=== PATIENT | male | born 1950 | race Caucasian/White ===

== ENCOUNTER → 2021-06-27 | Outpatient (CLI) | payer BC, MEDICARE ==
[~2021-06-27] MED LIST: BEBTELOVIMAB (EUA) 175 MG/2 ML VIAL IV ONE; SODIUM CHLORIDE 0.9% 500 ML 500 ML in EMPTY BAG 1 BAG IV PRN
[2021-06-27 13:15] VITALS: TEMP 98.2
[2021-06-27 14:29] VITALS: BP 149/73; PULSE 69
[2021-06-27 14:41] VITALS: RESP 18
== END ==
LOC: PROCWHC3 13:04
PROVIDERS: ATTEND Family Medicine
DX: U07.1 COVID-19 (principal); E66.9 Obesity, unspecified
CPT/HCPCS: 96374; Q0222; M0222

== ENCOUNTER 2022-01-31 16:16 | Emergency (ER) | payer MEDICARE ==
[2022-01-31 16:25] VITALS: TEMP 97.4
[2022-01-31] MEDS ORDERED: SODIUM CHLORIDE 0.9% 1,000 ML IV STA ×2 (16:35)
--- NOTE | 2022-01-31 16:43 | ED ---
General Adult HPI - General Chief complaint: Chest Pain Stated complaint: abn EKG Time Seen by Provider: 01/31/22 16:26 Source: patient Mode of arrival: ambulatory Limitations: no limitations - History of Present Illness Initial comments: This 71-year-old male presents with the complaint of some dizziness. This apparently came on this past evening. He felt lightheaded and presyncopal at times. He apparently became diaphoretic at times as well. He denies any chest pain or shortness of breath. This seems somewhat worse when he was going from lying to standing but also worse when he was sitting on the toilet. He has had several episodes of diarrhea but did not look at his stool also is unsure if there is any blood in it. She denies any abdominal pain, fevers, or chills. He states that he has had a slight cough but this is not abnormal for him. He denies any previous similar incidents. He is overall fairly healthy except for some hypercholesterolemia. He was seen at an urgent care earlier and they sent him to the ER for further evaluation. They told him that his EKG was abnormal but this is reviewed and there are no acute findings. No other complaints or modifying factors. - Related Data Allergies Allergy/AdvReac Type Severity Reaction Status Date / Time No Known Allergies Allergy Verified 01/31/22 16:25 Review of Systems ROS Statement: Those systems with pertinent positive or pertinent negative responses have been documented in the HPI. ROS Other: All systems not noted in ROS Statement are negative. Past Medical History Additional Past Medical History / Comment(s): high cholestrol History of Any Multi-Drug Resistant Organisms: None Reported Additional Past Surgical History / Comment(s): neck surgery Past Psychological History: No Psychological Hx Reported Smoking Status: Never smoker Past Alcohol Use History: Occasional Past Drug Use History: None Reported General Exam - General Exam Comments Initial Comments: GENERAL: The patient is well nourished and well hydrated. VITAL SIGNS: Heart rate, blood pressure, respiratory rate reviewed as recorded in nurse's notes. EYES: Pupils are round and reactive. Extraocular movements are intact. No conjunctival / lid redness or swelling. ENT: No external evidence of injury, swelling, or ecchymosis. Airway is patent. Throat is clear. NECK: Nontender. No swelling or evidence of injury. No subcutaneous emphysema. Trachea is midline. No thyroid mass. HEART: Regular rate and rhythm. Good peripheral pulses. LUNGS/CHEST: Breath sounds clear and equal bilaterally. No rales, rhonchi, or wheezes. No ecchymosis, subcutaneous emphysema, or tenderness. ABDOMEN: Abdomen soft without tenderness. No palpable masses or organomegaly. No peritoneal signs. No abdominal wall swelling or ecchymosis. EXTREMITIES: No extremity tenderness. Normal muscle tone and function. No thoracolumbar tenderness. NEUROLOGIC: Sensation is grossly intact. Cranial nerve exam reveals face is symmetrical, tongue is midline, speech is clear. SKIN: No abrasions or ecchymosis is noted. No induration or masses noted. PSYCHIATRIC: Alert and oriented. Appropriate behavior and judgment. Limitations: no limitations Course Vital Signs 01/31/22 01/31/22 16:19 17:18 Temperature 97.4 F L Pulse Rate 89 Respiratory 16 Rate Blood Pressure 128/82 Blood Pressure 132/71 [Sitting] Blood Pressure 117/70 [Standing] Blood Pressure 137/74 [Supine] O2 Sat by Pulse 98 Oximetry Medical Decision Making - Medical Decision Making The patient was seen and examined. All diagnostics were reviewed. EKG shows a normal sinus rhythm at a rate of 85. There is no acute ST-T wave changes identified. The FL intervals 174, QRS duration is 110, and the QTC intervals 400. An IV is established and he is hydrated. The laboratory is all essentially within normal limits except for the TSH is decreased. The orthostatics do show slight increase in heart rate with standing but overall are negative. He states that he was feeling fine when he came in and he is still feeling fine on recheck. Chest x-ray is normal. The exact cause of his symptomatology is not definitively determined. It does sound as though he was presyncopal yesterday and states that this has occurred intermittently over the past couple of years but yesterday was the worst. It is felt as though he stable for discharge but may benefit from Holter monitor on an outpatient basis. It is also felt as though he may benefit from following up with primary care for evaluation of his low TSH and possible hyperthyroidism as he may need additional testing and/or referral consultation. Patient is agreeable with this plan. Return parameters are discussed. Close follow-up recommended. - Lab Data Result diagrams: 01/31/22 16:44 01/31/22 17:50 Lab Results 01/31/22 01/31/22 01/31/22 Range/Units 16:44 16:52 16:52 WBC 8.9 (3.8-10.6) k/uL RBC 5.34 (4.30-5.90) m/uL Hgb 16.7 (13.0-17.5) gm/dL Hct 50.4 (39.0-53.0) % MCV 94.3 (80.0-100.0) fL MCH 31.2 (25.0-35.0) pg MCHC 33.1 (31.0-37.0) g/dL RDW 13.1 (11.5-15.5) % Plt Count 261 (150-450) k/uL MPV 8.2 Neutrophils % 84 % Lymphocytes % 8 % Monocytes % 5 % Eosinophils % 1 % Basophils % 0 % Neutrophils # 7.5 (1.3-7.7) k/uL Lymphocytes # 0.8 L (1.0-4.8) k/uL Monocytes # 0.4 (0-1.0) k/uL Eosinophils # 0.1 (0-0.7) k/uL Basophils # 0.0 (0-0.2) k/uL PT 10.1 (9.0-12.0) sec INR 0.9 (<1.2) APTT 22.9 (22.0-30.0) sec Sodium (137-145) mmol/L Potassium (3.5-5.1) mmol/L Chloride (98-107) mmol/L Carbon Dioxide (22-30) mmol/L Anion Gap mmol/L BUN (9-20) mg/dL Creatinine (0.66-1.25) mg/dL Est GFR (CKD-EPI)AfAm (>60 ml/min/1.73 sqM) Est GFR (CKD-EPI)NonAf (>60 ml/min/1.73 sqM) Glucose (74-99) mg/dL Calcium (8.4-10.2) mg/dL Phosphorus (2.5-4.5) mg/dL Magnesium (1.6-2.3) mg/dL Total Bilirubin (0.2-1.3) mg/dL AST (17-59) U/L ALT (4-49) U/L Alkaline Phosphatase (38-126) U/L Total Protein (6.3-8.2) g/dL Albumin (3.5-5.0) g/dL TSH (0.465-4.680) mIU/L Influenza Type A (PCR) Not Detected (Not Detectd) Influenza Type B (PCR) Not Detected (Not Detectd) RSV (PCR) Not Detected (Not Detectd) SARS-CoV-2 (PCR) Not Detected (Not Detectd) 01/31/22 Range/Units 17:50 WBC (3.8-10.6) k/uL RBC (4.30-5.90) m/uL Hgb (13.0-17.5) gm/dL Hct (39.0-53.0) % MCV (80.0-100.0) fL MCH (25.0-35.0) pg MCHC (31.0-37.0) g/dL RDW (11.5-15.5) % Plt Count (150-450) k/uL MPV Neutrophils % % Lymphocytes % % Monocytes % % Eosinophils % % Basophils % % Neutrophils # (1.3-7.7) k/uL Lymphocytes # (1.0-4.8) k/uL Monocytes # (0-1.0) k/uL Eosinophils # (0-0.7) k/uL Basophils # (0-0.2) k/uL PT (9.0-12.0) sec INR (<1.2) APTT (22.0-30.0) sec Sodium 140 (137-145) mmol/L Potassium 4.0 (3.5-5.1) mmol/L Chloride 113 H (98-107) mmol/L Carbon Dioxide 21 L (22-30) mmol/L Anion Gap 6 mmol/L BUN 27 H (9-20) mg/dL Creatinine 0.82 (0.66-1.25) mg/dL Est GFR (CKD-EPI)AfAm >90 (>60 ml/min/1.73 sqM) Est GFR (CKD-EPI)NonAf 90 (>60 ml/min/1.73 sqM) Glucose 105 H (74-99) mg/dL Calcium 7.0 L (8.4-10.2) mg/dL Phosphorus 2.6 (2.5-4.5) mg/dL Magnesium 1.9 (1.6-2.3) mg/dL Total Bilirubin 0.6 (0.2-1.3) mg/dL AST 25 (17-59) U/L ALT 24 (4-49) U/L Alkaline Phosphatase 46 (38-126) U/L Total Protein 5.9 L (6.3-8.2) g/dL Albumin 3.3 L (3.5-5.0) g/dL TSH 0.080 L (0.465-4.680) mIU/L Influenza Type A (PCR) (Not Detectd) Influenza Type B (PCR) (Not Detectd) RSV (PCR) (Not Detectd) SARS-CoV-2 (PCR) (Not Detectd) Disposition Clinical Impression: Pre-syncope, Dizziness, Diarrhea, Low TSH level Disposition: HOME SELF-CARE Condition: Good Instructions (If sedation given, give patient instructions): Near Syncope (ED) Additional Instructions: We also found that you're thyroid level is low and feel as though he should follow-up with your primary care in this regard for further workup. Is patient prescribed a controlled substance at d/c from ED?: No Referrals: Gerardo Morales DO [Primary Care Provider] - 1-2 days Time of Disposition: 19:57
[2022-01-31 16:55] LABS: Basophils % (A) 0 %; Eosinophils # (A) 0.1 k/uL (0-0.7); Eosinophils % (A) 1 %; HCT 50.4 % (39.0-53.0); HGB 16.7 gm/dL (13.0-17.5); Lymphocytes # (A) 0.8 k/uL (1.0-4.8); Lymphocytes % (A) 8 %; MCH 31.2 pg (25.0-35.0); MCHC 33.1 g/dL (31.0-37.0); MCV 94.3 fL (80.0-100.0); Mean Platelet Volume 8.2; Monocytes # (A) 0.4 k/uL (0-1.0); Monocytes % (A) 5 %; Neutrophils # (A) 7.5 k/uL (1.3-7.7); Neutrophils % (A) 84 %; Platelet Count 261 k/uL (150-450); RBC 5.34 m/uL (4.30-5.90); RDW 13.1 % (11.5-15.5); WBC 8.9 k/uL (3.8-10.6)
--- NOTE | 2022-01-31 17:09 | XR ---
EXAMINATION TYPE: XR chest 2V DATE OF EXAM: 01/31/2022 5:04 PM COMPARISON: Chest radiographs from TECHNIQUE: XR chest 2V . CLINICAL INDICATION:Male, 71 years old with history of Weakness; FINDINGS: Lungs/Pleura: There is no evidence of pleural effusion, focal consolidation, or pneumothorax. Pulmonary vascularity: Unremarkable. Heart/mediastinum: Cardiomediastinal silhouette is unremarkable. Musculoskeletal: No acute osseous pathology. There is fixation hardware in the lower cervical spine. IMPRESSION: No acute cardiopulmonary disease/process.
[2022-01-31 17:36] LABS: INR 0.9 (<1.2); Partial Thromboplastin Time 22.9 sec (22.0-30.0); Prothrombin Time 10.1 sec (9.0-12.0)
[2022-01-31 18:06] LABS: ALT 24 U/L (4-49); African American GFR (CKD) >90 (>60 ml/min/1.73 sqM); Albumin 3.3 g/dL (3.5-5.0); Anion Gap 6 mmol/L; Blood Urea Nitrogen 27 mg/dL (9-20); Carbon Dioxide 21 mmol/L (22-30); Chloride 113 mmol/L (98-107); Glucose 105 mg/dL (74-99); Non-African American GFR(CKD) 90 (>60 ml/min/1.73 sqM); Sodium 140 mmol/L (137-145); Total Bilirubin 0.6 mg/dL (0.2-1.3); Total Protein 5.9 g/dL (6.3-8.2)
[2022-01-31 18:08] LABS: Phosphorus 2.6 mg/dL (2.5-4.5)
[2022-01-31 18:09] LABS: AST 25 U/L (17-59); Alkaline Phosphatase 46 U/L (38-126); Magnesium 1.9 mg/dL (1.6-2.3)
[2022-01-31 20:15] LABS: Appearance,Urine Clear (Clear); Bilirubin,Urine Negative (Negative); Blood,Urine Negative (Negative); Color,Urine Yellow; Glucose,Urine (UA) Negative (Negative); Hyaline Casts,Urine 5 /lpf (0-2); Ketones,Urine Negative (Negative); Leukocyte Esterase,Urine Negative (Negative); Mucus,Urine Moderate /hpf; Nitrite,Urine Negative (Negative); PH, Urine 5.5 (5.0-8.0); Protein,Urine 1+ (Negative); RBC,Urine <1 /hpf (0-5); Squamous Epithelial Cell,Urine <1 /hpf (0-4); Urobilinogen,Urine <2.0 mg/dL (<2.0); WBC,Urine 2 /hpf (0-5)
[2022-01-31 20:37] VITALS: BP 132/82; PULSE 78; RESP 18
== END 2022-01-31 20:42 | disposition home or self-care (01) ==
LOC: EC 16:16
DX: R55 Syncope and collapse (principal); R19.7 Diarrhea, unspecified; R94.6 Abnormal results of thyroid function studies; Z20.822 Contact with and (suspected) exposure to COVID-19
CPT/HCPCS: 36415; 71046; 80053; 81001; 83735; 84100; 84443; 85025; 85610; 85730; 87636; 93005; 96360; 99285

== ENCOUNTER 2023-08-06 | Emergency (ER) | payer MEDICARE ==
[2023-08-06 00:08] VITALS: RESP 18; TEMP 98.5
--- NOTE | 2023-08-06 01:36 | ED ---
Abdominal Pain HPI - General Chief Complaint: Abdominal Pain Stated Complaint: constipation Time Seen by Provider: 08/06/23 01:33 Source: patient, RN notes reviewed Mode of arrival: ambulatory Limitations: no limitations - History of Present Illness Initial Comments: 72-year-old male presented to ER with a chief complaint of constipation. Patient states for the past 2 days he has been having very small amount of bowel movements describing it as "rabbit poop". He states he has tried to Fleet enemas at home without relief. , at bedside, reports when administering enema she felt resistance. Patient states his last normal bowel movement was about 2 days ago. He denies any fevers, chills, nausea or vomiting. He does report suprapubic abdominal pain. Denies any urinary complaints. No other complaints at this time. - Related Data Previous Rx's Medication Instructions Recorded Docusate [Colace] 100 mg PO DAILY #10 capsule 08/06/23 polyethylene glycoL 3350 [Miralax] 17 gm PO DAILY #30 packet 08/06/23 Allergies Allergy/AdvReac Type Severity Reaction Status Date / Time No Known Allergies Allergy Verified 08/06/23 00:07 Review of Systems ROS Statement: Those systems with pertinent positive or pertinent negative responses have been documented in the HPI. ROS Other: All systems not noted in ROS Statement are negative. Past Medical History Additional Past Medical History / Comment(s): high cholestrol History of Any Multi-Drug Resistant Organisms: None Reported Additional Past Surgical History / Comment(s): neck surgery Past Psychological History: No Psychological Hx Reported Smoking Status: Never smoker Past Alcohol Use History: Occasional Past Drug Use History: None Reported General Exam Limitations: no limitations General appearance: alert, in no apparent distress Respiratory exam: Present: normal lung sounds bilaterally. Absent: respiratory distress, wheezes, rales, rhonchi, stridor Cardiovascular Exam: Present: regular rate, normal rhythm, normal heart sounds. Absent: systolic murmur, diastolic murmur, rubs, gallop, clicks GI/Abdominal exam: Present: soft, tenderness (Suprapubic), hyperactive bowel sounds Rectal exam: Present: normal rectal tone, hemorrhoids, other (Large fecalith) Neurological exam: Present: alert, oriented X3, CN II-XII intact Skin exam: Present: warm, dry, intact, normal color. Absent: rash Course Vital Signs 08/06/23 08/06/23 00:04 03:02 Temperature 98.5 F Pulse Rate 67 87 Respiratory 18 18 Rate Blood Pressure 177/79 140/89 O2 Sat by Pulse 98 98 Oximetry Medical Decision Making - Medical Decision Making Was pt. sent in by a medical professional or institution (, [facility], [facility], urgent care, hospital, or senior living...) When possible be specific @ -No Did you speak to anyone other than the patient for history (EMS, parent, family, police, friend...)? What history was obtained from this source @ -No Did you review nursing and triage notes (agree or disagree)? Why? @ -I reviewed and agree with nursing and triage notes Were old charts reviewed (outside hosp., previous admission, EMS record, old EKG, old radiological studies, urgent care reports/EKG's, senior living records)? Report findings @ -No old charts were reviewed Differential Diagnosis (chest pain, altered mental status, abdominal pain women, abdominal pain men, vaginal bleeding, weakness, fever, dyspnea, syncope, headache, dizziness, GI bleed, back pain, seizure, CVA, palpatations, mental health, musculoskeletal)? @ -Differential Abdominal Pain Men: Appendicitis, cholecystitis, diverticulosis, ischemic bowel, pancreatitis, hepatitis, UTI, gastroenteritis, AAA, incarcerated hernia, bowel obstruction, constipation, inflammatory bowel, hepatitis, peptic ulcer disease, splenic infarction, perforated viscus, testicular torsion, this is not meant to be an all-inclusive list EKG interpreted by me (3pts min.). @ -None X-rays interpreted by me (1pt min.). @ -KUB x-ray interpreted by me remarkable for nonspecific gas bowel pattern. CT interpreted by me (1pt min.). @ -None done U/S interpreted by me (1pt. min.). @ -None done What testing was considered but not performed or refused? (CT, X-rays, U/S, labs)? Why? @ -None What meds were considered but not given or refused? Why? @ -None Did you discuss the management of the patient with other professionals (professionals i.e. [facility]inares, [facility], lab, RT, psych nurse, social media executive, director client, teacher, mechanical engineering officer, case resource manager)? Give summary @ -No Was smoking cessation discussed for >3mins.? @ -No Was critical care preformed (if so, how long)? @ -No Were there social determinants of health that impacted care today? How? (Homelessness, low income, unemployed, alcoholism, drug addiction, transportation, low edu. Level, literacy, decrease access to med. care, correction, rehab)? @ -No Was there de-escalation of care discussed even if they declined (Discuss DNR or withdrawal of care, Hospice)? DNR status @ -No What co-morbidities impacted this encounter? (DM, HTN, Smoking, COPD, CAD, Cancer, CVA, ARF, Chemo, Hep., AIDS, mental health diagnosis, sleep apnea, morbid obesity)? @ -None Was patient admitted / discharged? Hospital course, mention meds given and route, prescriptions, significant lab abnormalities, going to OR and other pertinent info. @ -Discharge. 72-year-old male presented to the ER with a chief complaint of constipation. History and physical exam completed. Vitals stable. Patient no signs of acute distress and nontoxic-appearing. Mild suprapubic abdominal pain to palpation. Hyperactive bowel sounds. Rectal exam performed and chaperoned by Ivet Addison RN. Exam significant for a large fecalith with some impaction removed on exam. KUB performed significant for fecal retention with nonspecific gas bowel pattern. Milk molasses enema performed with alleviation of fecalith and constipation. Upon reevaluation, patient resting comfortably in exam room in no signs of acute distress. Patient stable for discharge at this time. I advised [id number] MiraLAX and Colace for constipation relief at home. Return parameters discussed. Patient discharged in stable condition with follow-up to PCP. Patient and , at bedside, verbally expressed understanding and agreed with care plan. Case discussed with ED attending, Dr Solorzano. Undiagnosed new problem with uncertain prognosis? @ -No Drug Therapy requiring intensive monitoring for toxicity (Heparin, Nitro, Insulin, Cardizem)? @ -No Were any procedures done? @ -No Diagnosis/symptom? @ -Constipation/hemorrhoids Acute, or Chronic, or Acute on Chronic? @ -Acute Uncomplicated (without systemic symptoms) or Complicated (systemic symptoms)? @ -Uncomplicated Side effects of treatment? @ -No Exacerbation, Progression, or Severe Exacerbation? @ -No Poses a threat to life or bodily function? How? (Chest pain, USA, PA, pneumonia, PE, COPD, DKA, ARF, appy, cholecystitis, CVA, Diverticulitis, Homicidal, Suicidal, threat to staff... and all critical care pts) @ -No - Radiology Data Radiology results: report reviewed, image reviewed Disposition Clinical Impression: Constipation, Hemorrhoids Disposition: HOME SELF-CARE Condition: Stable Instructions (If sedation given, give patient instructions): Constipation (DC), Hemorrhoids (ED) Additional Instructions: I recommend starting MiraLAX daily. Follow-up with primary care physician. Return to the ER for any new or worsening concerns. Prescriptions: Docusate [Colace] 100 mg PO DAILY #10 capsule polyethylene glycoL 3350 [Miralax] 17 gm PO DAILY #30 packet Is patient prescribed a controlled substance at d/c from ED?: No Referrals: Gerardo Morales DO [Primary Care Provider] - 1-2 days Time of Disposition: 02:48
[2023-08-06 03:03] VITALS: BP 140/89; PULSE 87
--- NOTE | 2023-08-06 03:16 | XR ---
EXAM: XR Abdomen, 1 View CLINICAL HISTORY: ITS.REASON XR Reason: constipation TECHNIQUE: Frontal supine view of the abdomen/pelvis. COMPARISON: No relevant prior studies available. FINDINGS: Gastrointestinal tract: Moderate fecal retention, correlate for constipation. Nonobstructed bowel gas pattern. Bones/joints: Unremarkable. No acute fracture. IMPRESSION: 1. Moderate fecal retention, correlate for constipation. 2. Nonobstructed bowel gas pattern.
== END 2023-08-06 03:02 | disposition home or self-care (01) ==
LOC: EC
DX: K59.00 Constipation, unspecified (principal); K64.9 Unspecified hemorrhoids
CPT/HCPCS: 74018; 99284